=== PATIENT | female | born 1960 | race Caucasian/White ===

== ENCOUNTER 2019-12-08 07:21 | Day surgery (SDC) | payer OTHER, SELFPAY ==
[~2019-12-08] VITALS: Ht 162.6 cm; Wt 81.6 kg
[~2019-12-08 07:21] MED LIST: LISI10TA11 PO
[2019-12-08] MEDS ORDERED: MIDAZOLAM 2 MG/2 ML VIAL ONE (09:06)
[2019-12-08] MEDS ORDERED: fentaNYL citrate 0.05 MG/ML VIAL ONE (09:06)
[2019-12-08] MEDS ORDERED: diphenhydrAMINE 50 MG/ML VIAL ONE (09:06)
[2019-12-08] MEDS ORDERED: diphenhydrAMINE 50 MG/ML VIAL IVP ONE (10:15)
[2019-12-08] MEDS ORDERED: fentaNYL citrate 0.05 MG/ML VIAL IVP ONE (10:15)
[2019-12-08] MEDS ORDERED: MIDAZOLAM 2 MG/2 ML VIAL IVP ONE (10:15)
[2019-12-08] MEDS ORDERED: LIDOCAINE 2% 100 MG/5 ML UJET TP ONE (10:17)
== END 2019-12-08 10:30 | disposition home or self-care (01) ==
LOC: MDS 07:21 → MFCC 07:32 → MDS 10:30
PROVIDERS: ATTEND Internal Medicine Gastroenterology
DX: Z12.11 Encounter for screening for malignant neoplasm of colon (principal); K63.5 Polyp of colon; I10 Essential (primary) hypertension; Z20.828 Contact with and (suspected) exposure to other viral communicable diseases; Z79.899 Other long term (current) drug therapy
CPT/HCPCS: 45380; 45385; J1200; J2250; J3010; U0003

== ENCOUNTER 2021-10-20 15:28 | Emergency (ER) | payer OTHER ==
[~2021-10-20] VITALS: Ht 162.6 cm; Wt 74.8 kg
[~2021-10-20 15:28] MED LIST changes: +LISI-486 PO; -LISI10TA11 PO
[2021-10-20 15:34] VITALS: BP 147/80
--- NOTE | 2021-10-20 18:06 | NUR ---
ATTEMPTED TO CALL PT BACK, NO ANSWER IN LOBBY/OUTSIDE
== END 2021-10-20 18:05 | disposition left against medical advice (07) ==
LOC: MED 15:28
DX: R10.32 Left lower quadrant pain (principal); Z53.21 Procedure and treatment not carried out due to patient leaving prior to being seen by health care provider